=== PATIENT | female | born 1945 | race Caucasian/White ===

== ENCOUNTER 2021-01-22 03:40 | Inpatient (IN) | payer SELFPAY ==
[~2021-01-22] VITALS: Ht 144.8 cm; Wt 55.1 kg
[2021-01-22] MEDS ORDERED: MECLIZINE 25MG TABLET PO ONE ×2 (04:45→07:45)
[2021-01-22 04:57] LABS: BASOPHILS % 0.4 % (0.0-2.0); EOSINOPHILS % 1.1 % (0.0-5.0); HEMATOCRIT. 39.7 % (36.0-48.0); LYMPHOCYTES % 21.2 % (20.0-50.0); MEAN CORPUSCULAR HEMOGLOBIN 30.7 pg (28.0-32.0); MEAN CORPUSCULAR VOLUME 94.1 fL (81.0-99.0); MEAN PLATELET VOLUME 8.1 fl (7.4-10.4); MONOCYTES % 5.9 % (2.0-8.0); NEUTROPHILS % 71.4 % (40.0-76.0); PLATELET 364 x1000/uL (130-400); RED BLOOD CELL COUNT 4.22 mill/uL (4.2-5.4); RED CELL DISTRIBUTION WIDTH 13.7 % (11.6-14.6)
[2021-01-22 05:04] LABS: CHLORIDE 106 mEq/L (98-107)
[2021-01-22] MEDS ORDERED: IBUPROFEN 600MG TABLET PO ONE (06:30)
[2021-01-22] MEDS ORDERED: POTASSIUM CHLORIDE 20MEQ TABLET SR PO ONE (06:30)
[2021-01-22] MEDS ORDERED: ZOLPIDEM TARTRATE 5MG TABLET PO PRN (15:45)
[2021-01-22] MEDS ORDERED: ONDANSETRON HCL 4MG/2ML INJ IV PRN (15:45)
[2021-01-22] MEDS ORDERED: POTASSIUM CHLORIDE 20MEQ TABLET SR PO NR (15:45)
[2021-01-22] MEDS ORDERED: MAGNESIUM/ALUMINUM HYDROXIDE/SIMETHICONE 30ML UDC PO PRN (15:45)
[2021-01-22] MEDS ORDERED: DEXTROSE 50% WATER 50ML SYRINGE IV PRN (15:45)
[2021-01-22] MEDS ORDERED: CLONIDINE 0.1MG TABLET PO PRN (15:45)
[2021-01-22] MEDS ORDERED: ACETAMINOPHEN 325MG TABLET PO PRN ×2 (15:45)
[2021-01-22] MEDS ORDERED: DIPHENHYDRAMINE 50MG/ML VIAL IV PRN (15:45)
[2021-01-22 16:00] VITALS: BP 134/62
[2021-01-22] MEDS ORDERED: MECLIZINE 25MG TABLET PO PRN (16:00)
[2021-01-22 17:29] VITALS: BP 134/62
[2021-01-22] MEDS: INSULIN LISPRO 100 UNITS/ML SUBCUT SCH ×2 (17:50→21:00)
[2021-01-22] MEDS: BLOOD SUGAR DIAGNOSTIC STRIP TEST SCH ×2 (18:09→21:52)
[2021-01-22] MEDS ORDERED: METF-415 PO (19:03)
[2021-01-22] MEDS: OMEPRAZOLE 20MG CAPSULE EXTENDED RELEASE PO SCH (21:29)
[2021-01-22] MEDS: SODIUM CHLORIDE 0.9% INJ 3ML FLUSH IVF SCH (21:29)
[2021-01-23] VITALS: BP 120/62
[2021-01-23 04:00] VITALS: BP 130/88
[2021-01-23] MEDS: BLOOD SUGAR DIAGNOSTIC STRIP TEST SCH ×3 (05:51→17:26)
[2021-01-23] MEDS: OMEPRAZOLE 20MG CAPSULE EXTENDED RELEASE PO SCH (06:03)
[2021-01-23] MEDS: SODIUM CHLORIDE 0.9% INJ 3ML FLUSH IVF SCH ×2 (06:03→17:24)
[2021-01-23] MEDS: INSULIN LISPRO 100 UNITS/ML SUBCUT SCH ×3 (06:35→17:10)
[2021-01-23] MEDS ORDERED: METFORMIN HCL 500MG TABLET PO SCH (09:00)
[2021-01-23 12:00] VITALS: BP 108/82
[2021-01-23 16:00] VITALS: BP 102/56
[2021-01-23 18:49] VITALS: BP 102/56
== END 2021-01-23 19:45 | disposition home or self-care (01) | DRG 48 ==
LOC: ER 03:40 → 6EST 08:34 → EDBEDREQ 08:46 → ENRESERV 14:54 → 7EST 22:12
PROVIDERS: ADMIT Internal Medicine; ATTEND Internal Medicine
DX: G90.8 Other disorders of autonomic nervous system (principal); E11.9 Type 2 diabetes mellitus without complications; E87.6 Hypokalemia; I10 Essential (primary) hypertension; K21.9 Gastro-esophageal reflux disease without esophagitis; Z79.84 Long term (current) use of oral hypoglycemic drugs; Z79.899 Other long term (current) drug therapy
CPT/HCPCS: 36415; 71045; 80051; 80053; 82962; 83036; 83735; 83880; 84484; 85025; 93005; 99285; J2405; J8597